=== PATIENT | male | born 1995 | race Caucasian/White ===

== ENCOUNTER 2020-05-26 18:14 | Emergency (ER) | payer SELFPAY ==
[2020-05-26] MEDS ORDERED: Bupivacaine 0.5% 10 ML VIAL ONE (18:28)
[2020-05-26] MEDS ORDERED: Penicillin V Potassium 250 MG TAB ONE ×2 (18:44→18:45)
== END 2020-05-26 18:50 | disposition home or self-care (01) ==
LOC: BURERS 18:14
DX: K04.7 Periapical abscess without sinus (principal); F17.210 Nicotine dependence, cigarettes, uncomplicated
CPT/HCPCS: 64400; J3490